=== PATIENT | male | born 1980 ===

== ENCOUNTER 2021-06-29 18:24 | Outpatient (REF) | payer MEDICAID, SELFPAY ==
[2021-06-29 20:36] LABS: ALT 21 U/L (16-63); AST 16 U/L (15-37); Albumin 4.1 g/dL (3.4-5.0); Alkaline Phosphatase 57 U/L (46-116); Anion Gap 6.9 mmol/L (3-11); BUN 11 mg/dL (7-18); Bilirubin, Total 0.6 mg/dL (0.2-1.0); CO2 29.1 mmol/L (21.0-32.0); CREATININE 0.9 mg/dL (0.70-1.30); Calcium 8.8 mg/dL (8.5-10.1); Calculated LDL 159 mg/dL (<100); Chloride 106 mmol/L (98-107); Cholesterol 240 mg/dL (<200); Glucose 93 mg/dL (74-106); HDL Cholesterol 63 mg/dL (40-60); Potassium 4.2 mmol/L (3.5-5.1); Sodium 142 mmol/L (136-145); TSH (W/Ref FT4) 0.92 uIU/mL (0.36-3.74); Total Protein 7.1 g/dL (6.4-8.2); Triglyceride 93 mg/dL (<150)
== END 2021-06-29 18:25 | disposition home or self-care (01) ==
LOC: NCHCN 18:24
PROVIDERS: Visit Provider Physician Assistant
DX: F41.8 Other specified anxiety disorders (principal); E78.1 Pure hyperglyceridemia; R42 Dizziness and giddiness; F10.10 Alcohol abuse, uncomplicated
CPT/HCPCS: 80053; 80061; 84443

== ENCOUNTER 2022-03-23 15:10 | Outpatient (REF) | payer MEDICAID, SELFPAY ==
[2022-03-24 17:37] LABS: Rheumatoid Factor <8.6 IU/mL (<12.0)
[2022-03-25 14:16] LABS: ANA Interpretation Negative (Negative)
== END 2022-03-23 15:11 | disposition home or self-care (01) ==
LOC: NCHCN 15:10
PROVIDERS: Visit Provider Internal Medicine
DX: I73.00 Raynaud's syndrome without gangrene (principal)
CPT/HCPCS: 86038; 86431

== ENCOUNTER 2023-12-05 14:48 | Outpatient (REF) | payer MEDICAID, SELFPAY ==
--- NOTE | 2023-12-05 13:10 | SKI_PTH ---
PATIENT: Hugh Miranda LOC: NCN #:[id number] AGE/SX: 43/M ROOM: RE12/05/[address]: Sultana Mackay : 1980 BED: DIS: 12/05/2023 SPEC #: [id number] RECD: 12/05/23 18:35 STATUS: TRACIE REQ #: [id number] DEJAN: 12/05/23 13:[address] RECD BY: Majo Gallo ENTERED: 12/05/23 18:36 SP TYPE: INOCENCIA RIVERA DR: Unknown,Unknown Tissues: 1 - SKIN BIOPSY(SHAVE/PUNCH) Procedures: SKIN LEVEL 4 Comments: [id number]
== END 2023-12-05 14:49 | disposition home or self-care (01) ==
LOC: NCHCN 14:48
PROVIDERS: Visit Provider Nurse Practitioner Family
DX: L81.9 Disorder of pigmentation, unspecified (principal); D22.5 Melanocytic nevi of trunk
CPT/HCPCS: 88305

== ENCOUNTER 2024-07-09 19:02 | Outpatient (REF) | payer MEDICAID, SELFPAY ==
[2024-07-09 19:29] LABS: Abs Immature Grans 0.01 10^3/uL (0.0-0.06); Absolute Basophil Count 0.08 10^3/uL (0.0-0.2); Absolute Eosinophil Count 0.28 10^3/uL (0.0-0.7); Absolute Lymphocyte Count 2.29 10^3/uL (1.2-3.4); Absolute Neutrophil Count 2.65 10^3/uL (1.2-6.7); Basophils % 1.4 %; Eosinophils % 4.8 %; HCT 46.5 % (40.0-50.0); HGB 16.2 g/dL (13.5-17.5); Immature Grans % 0.2 %; Lymphocytes % 39.4 %; MCHC 34.8 % (32.0-36.0); MCV 92 fL (80-95); MPV 9.7 fL (8.0-11.0); Monocytes % 8.6 %; Neutrophils % 45.6 %; Platelet Count 262 10^3/uL (130-400); RBC 5.06 10^6/uL (4.36-5.78); RDW-SD 43.4 fL; WBC 5.81 10^3/uL (4.4-10.8)
[2024-07-09 19:40] LABS: Iron 116 ug/dL (65-175); Total Iron Binding Capacity 292 ug/dL (250-450); Transferrin Sat 40 % (20-55)
[2024-07-09 20:09] LABS: ALT 24 U/L (16-63); AST 18 U/L (15-37); Alkaline Phosphatase 56 U/L (46-116); Anion Gap 2.6 mmol/L (3-11); BUN 13 mg/dL (7-18); Bilirubin, Total 0.4 mg/dL (0.2-1.0); CO2 31.4 mmol/L (21.0-32.0); Calcium 9.2 mg/dL (8.5-10.1); Calculated LDL 125 mg/dL (<100); Chloride 105 mmol/L (98-107); Cholesterol 193 mg/dL (<200); Estimated GFR 94.59 (mL/min/1.73m2); Ferritin 126 ng/mL (26-388); Folate 12.5 ng/mL (8.6-20.0); Glucose 100 mg/dL (74-106); HDL Cholesterol 46 mg/dL (>or=40); Potassium 4.3 mmol/L (3.5-5.1); Sodium 139 mmol/L (136-145); TSH (W/Ref FT4) 0.88 uIU/mL (0.36-3.74); Total Protein 7.2 g/dL (6.4-8.2); Triglyceride 114 mg/dL (<150); Vitamin B12 340 pg/mL (193-986); Vitamin D 25 Total 39 ng/mL (30-100)
[2024-07-11 11:28] LABS: HIV-1/2 Ag & Ab Screen Negative (Negative)
[2024-07-11 11:39] LABS: Hepatitis C Ab w Rflx HCV PCR Negative (Negative)
[2024-07-26 10:55] LABS: Testosterone, Free 15.8 ng/dL (4.26-16.4); Testosterone, Total 799 ng/dL (240-950)
== END 2024-07-09 19:03 | disposition home or self-care (01) ==
LOC: NCHCN 19:02
PROVIDERS: Visit Provider Physician Assistant
DX: E78.5 Hyperlipidemia, unspecified (principal); Z11.59 Encounter for screening for other viral diseases; Z11.4 Encounter for screening for human immunodeficiency virus [HIV]; R53.82 Chronic fatigue, unspecified
CPT/HCPCS: 80053; 80061; 82306; 82533; 84402; 84403; 86803; 87389; 82607; 82728; 82746; 83540; 83550; 84443; 85025